=== PATIENT | male | born 1955 | race Caucasian/White ===

== ENCOUNTER 2020-02-22 06:44 | Emergency (ER) | payer MEDICARE ==
[~2020-02-22] VITALS: Ht 182.9 cm; Wt 99.8 kg
--- OUTSIDE RECORDS SUMMARY | 2020-02-22 08:14 | XMS ---
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 Cristopher has no Care Guidelines for this patient. EKassandraDKassandra VISIT COUNT (12 MO.) 1 Constantin Krishnan 2 Bisi Bunch 1 FAMILIA Selby TOTAL 4 NOTE: Visits indicate total known visits. ED/C VISIT TRACKING (12 MO.) 02/22/2020 06:44 FAMILIA [place] TYPE: Emergency COMPLAINT: - RIGHT FOOT PAIN NON INJURY 02/12/2020 02:24 Constantin SAINI TYPE: Emergency COMPLAINT: - BACK PAIN - MUSCLE SPASM OF BACK DIAGNOSES: 0. Muscle spasm of back 1. Dorsalgia, unspecified 3. Muscle spasm of back 4. Nicotine dependence, cigarettes, uncomplicated 5. Other half-way (current) drug therapy 02/03/2020 10:40 Bisi SAINI TYPE: Emergency COMPLAINT: - BACK PAIN 01/28/2020 17:15 Bisi SAINI TYPE: Emergency COMPLAINT: - RUNNY NOSE, COUGH,NEEDS COVID TEST FOR [facility] INPATIENT VISIT TRACKING (12 MO.) No inpatient visits to display in this time frame [email or web address]
== END 2020-02-22 08:05 | disposition home or self-care (01) ==
LOC: ED 06:44
DX: M25.571 Pain in right ankle and joints of right foot (principal); F17.200 Nicotine dependence, unspecified, uncomplicated
CPT/HCPCS: 73610; 99283-25